=== PATIENT | male | born 1975 | race African-American/Black ===

== ENCOUNTER 2019-02-14 10:29 | Emergency (ER) | payer SELFPAY ==
[~2019-02-14 10:29] MED LIST: Sodium Chloride 0.9% 100 ML BAG ONE
--- NOTE | 2019-02-14 11:15 | RAD ---
Portable chest: HISTORY: Cough COMPARISON: none FINDINGS:Heart size upper normal. Vascularity is mildly engorged. No infiltrate or effusion. IMPRESSION: No acute finding
[2019-02-14 11:41] LABS: Prothrombin Time 13.4 SEC (12.0-14.7)
[2019-02-14] MEDS ORDERED: Enoxaparin Sodium 60 MG/0.6 ML SYRINGE ONE (11:41)
[2019-02-14] MEDS ORDERED: Diltiazem 125 MG/25 ML ONE (11:41)
[2019-02-14] MEDS ORDERED: Enoxaparin Sodium 40 MG/0.4 ML SYRINGE ONE (11:41)
[2019-02-14 11:50] LABS: ALT (SGPT) 93 U/L (8-55); AST (SGOT) 38 U/L (5-34); Albumin 4.2 g/dL (3.5-5.0); Alkaline Phosphatase 53 U/L (40-150); Anion Gap 11 mmol/L (10-20); BUN (Urea Nitrogen) 16 mg/dL (8.9-20.6); Bilirubin, Total 0.9 mg/dL (0.2-1.2); Calc. Creatinine Clearance 0 mL/min (70-130); Carbon Dioxide 22 mmol/L (22-29); Chloride 110 mmol/L (98-107); Estimated GFR-MDRD 84; Globulin 2.2 g/dL (2.4-3.5); Glucose 109 mg/dL (70-105); Potassium 4.9 mmol/L (3.5-5.1); Protein, Total 6.4 g/dL (6.0-8.3); Sodium 138 mmol/L (136-145)
[2019-02-14 12:00] LABS: #Basophils 0.1 thou/uL (0.0-0.2); #Eosinphils 0.1 thou/uL (0.0-0.7); #Lymphocytes 2.1 thou/uL (1.20-3.40); #Monocytes 0.6 thou/uL (0.11-0.59); #Neutrophils 3.6 thou/uL (1.40-6.50); %Basophils 1.6 % (0.0-1.0); %Eosinophils 1.4 % (0.0-10.0); %Lymphocytes 32.3 % (21.0-51.0); %Monocytes 9.7 % (0.0-10.0); Hemoglobin 13.2 g/dL (14.0-18.0); MDiff Complete? YES; Mean Corpuscular HGB CONC 29.8 g/dL (32.0-36.0); Mean Corpuscular Hemoglobin 22.2 pg (27.0-31.0); Mean Corpuscular Volume 74.3 fL (78.0-98.0); Mean Platelet Volume 7.7 fL (7.4-10.4); Microcytosis SLIGHT = 6-15 cells (100X) (0-5/hpf); Platelet Count 267 thou/uL (130-400); Platelet Morphology Comment Appears Adequate; RBC Distribution Width 14.6 % (11.5-14.5); Red Blood Cell (RBC) Count 5.97 mill/uL (4.70-6.10); White Blood Cell (WBC) Count 6.5 thou/uL (4.8-10.8)
[2019-02-14] MEDS ORDERED: Aspirin Chewable 81 MG TAB ONE (12:19)
== END 2019-02-14 13:30 | disposition short-term general hospital (02) ==
LOC: MADERS 10:29
DX: I48.91 Unspecified atrial fibrillation (principal); I48.92 Unspecified atrial flutter; F17.210 Nicotine dependence, cigarettes, uncomplicated
CPT/HCPCS: 71045; 80053; 82553; 83880; 84484; 85025; 85610; 93005; 96365; 96366; 96376; J1650; J3490; J7620

== ENCOUNTER 2020-03-15 11:31 | Emergency (ER) | payer OTHER, SELFPAY ==
[~2020-03-15 11:31] MED LIST changes: +Dextrose 5 %-0.45 % NaCl 1000 ml Bag ONE; +Sodium Chloride 0.9% 1,000 ML BAG ONE
[2020-03-15 12:48] LABS: Bilirubin Small (Negative); Blood, Urine Trace (Negative); Clarity Clear (Clear); Glucose, Urine (Dipstick) 500 mg/dL (Negative); Ketone, Urine > or equal to 80 mg/dL (Negative); Leukocyte Negative (Negative); Nitrite Negative (Negative); Protein, Urine (Dipstick) 30 mg/dL (Neg-Trace); Specific Gravity, Urine 1.025 (1.005-1.030); Urobilinogen 0.2 mg/dL (Less than 2)
[2020-03-15 12:51] LABS: Anion Gap 21 mmol/L (10-20); BUN (Urea Nitrogen) 18 mg/dL (8.9-20.6); Calc. Creatinine Clearance 0 mL/min (70-130); Calcium 9.2 mg/dL (7.8-10.44); Carbon Dioxide 16 mmol/L (22-29); Chloride 103 mmol/L (98-107); Estimated GFR-MDRD 72; Glucose 264 mg/dL (70-105); Potassium 4.3 mmol/L (3.5-5.1); Sodium 136 mmol/L (136-145)
[2020-03-15 12:52] LABS: #Basophils 0.1 thou/uL (0.0-0.2); #Eosinphils 0.2 thou/uL (0.0-0.7); #Lymphocytes 2.9 thou/uL (1.20-3.40); #Monocytes 0.5 thou/uL (0.11-0.59); #Neutrophils 3.7 thou/uL (1.40-6.50); %Basophils 1.1 % (0.0-1.0); %Eosinophils 2.2 % (0.0-10.0); %Lymphocytes 39.7 % (21.0-51.0); %Monocytes 6.4 % (0.0-10.0); %Neutrophils 50.6 % (42.0-75.0); Hemoglobin 13.5 g/dL (14.0-18.0); MDiff Complete? YES; Mean Corpuscular HGB CONC 28.8 g/dL (32.0-36.0); Mean Corpuscular Hemoglobin 20.1 pg (27.0-31.0); Mean Corpuscular Volume 69.8 fL (78.0-98.0); Mean Platelet Volume 10.1 fL (7.4-10.4); Microcytosis SLIGHT = 6-15 cells (100X) (0-5/hpf); Platelet Count 283 thou/uL (130-400); Polychromasia SLIGHT = 2-3 cells (100X) (0-2/hpf); RBC Distribution Width 12.2 % (11.5-14.5); White Blood Cell (WBC) Count 7.3 thou/uL (4.8-10.8)
[2020-03-15 12:55] LABS: Bacteria/HPF Rare-Few HPF (None Seen); RBC/HPF 0-3 HPF (0-3); Squamous Epithelial 0-3 HPF (0-3); WBC/HPF None Seen HPF (0-3)
[2020-03-15 12:57] LABS: Base Excess-Venous -5.1 mmol/L (-2.0 to 3.0); Bicarbonate (HCO3v) 22.8 mmol/L (22.0-28.0); CO2 Tension (PvCO2) 51.6 mmHg (40.0-50.0); Chloride 106 mmol/L (98-107); Hemoglobin - Calc 16.4 g/dL (14.0-18.0); Potassium 4.6 mmol/L (3.5-5.1); Sodium 136 mmol/L (138-145); T. Carbon Dioxide 24.4 mmol/L (22.0-28.0); vO2 Saturation-calc 96.3 % (60.0-85.0)
[2020-03-15] MEDS ORDERED: Insulin Regular 300 UNITS/3 ML VIAL ONE (13:07)
== END 2020-03-15 14:31 | disposition short-term general hospital (02) ==
LOC: MADERS 11:31
DX: E11.10 Type 2 diabetes mellitus with ketoacidosis without coma (principal); F17.210 Nicotine dependence, cigarettes, uncomplicated
CPT/HCPCS: 36416; 80048; 81003; 81015; 82330; 82803; 85025; J1815; J3490; J7042; J7050